=== PATIENT | male | born 1955 | race Asian ===

== ENCOUNTER → 2023-07-03 07:40 | Outpatient (REF) | payer MEDICARE, SELFPAY | LOC: EMG 07:40 | PROVIDERS: ATTENDING PHYSICIAN Family Medicine | DX: R20.0 Anesthesia of skin (principal) | CPT/HCPCS: 95886; 95909 ==

== ENCOUNTER → 2025-01-11 10:27 | Outpatient (REF) | payer MEDICARE, SELFPAY | LOC: PAVMRI 10:27 | PROVIDERS: ATTENDING PHYSICIAN Family Medicine | DX: R20.0 Anesthesia of skin (principal) | CPT/HCPCS: 72148 ==

== ENCOUNTER 2025-01-14 06:17 | Day surgery (SDC) | payer MEDICARE, SELFPAY | END 2025-01-14 10:24 | disposition home or self-care (01) | LOC: GI 06:17 | PROVIDERS: ATTENDING PHYSICIAN Specialist; FAMILY PHYSICIAN Family Medicine | DX: R13.10 Dysphagia, unspecified (principal); K29.50 Unspecified chronic gastritis without bleeding | CPT/HCPCS: 43239; 88305; 88342 ==